=== PATIENT | male | born 1990 | race Two or more races ===

== ENCOUNTER 2023-12-11 20:05 | Emergency (ER) | payer BC, OTHER ==
[~2023-12-11] VITALS: Ht 165.1 cm; Wt 77.3 kg
[2023-12-11 20:51] LABS: Basophils # (auto) 0.1 10 ^3/uL (0-0.2); Basophils % (auto) 0.7 % (0.0-2.0); Eosinophils # (auto) 0.1 10 ^3/uL (0-0.8); Eosinophils % (auto) 1.5 % (0.0-7.0); Hematocrit 48.2 % (41.0-53.0); Hemoglobin 16.4 g/dL (13.5-17.5); Lymphocytes # (auto) 3.9 10 ^3/uL (0.4-5.4); Lymphocytes % (auto) 44.3 % (10.0-50.0); Mean Corpuscular Hemoglobin 30.9 pg (28.0-32.0); Mean Corpuscular Volume 90.9 fL (80.0-100.0); Monocytes # (auto) 0.9 10 ^3/uL (0-1.3); Neutrophils # (auto) 3.8 10 ^3/uL (1.6-8.6); Neutrophils % (auto) 43.5 % (37.0-80.0); Nucleated Red Blood Cells % 0.1 %; Red Cell Distribution Width 13.5 % (11.8-14.3); White Blood Cell 8.8 10^3/uL (4.4-10.8)
[2023-12-11 21:05] LABS: INR 1.02 (0.9-1.15); Partial Thromboplastin Time 27.6 SEC (24.5-34.5); Prothrombin Time 10.8 sec (9.3-11.8)
[2023-12-11 21:08] LABS: Alanine Aminotransferase 115 U/L (7-40); Alkaline Phosphatase 125 U/L (46-116); Anion Gap 12 (5-15); Aspartate Aminotransferase 50 U/L (13-40); BUN/Creatinine Ratio 9.4 (10.0-20.0); Bilirubin, Total 0.5 mg/dL (0.2-1.0); Blood Urea Nitrogen 8 mg/dL (9-23); Calcium 9.6 mg/dL (8.5-10.1); Carbon Dioxide 21 mmol/L (20-30); Chloride 105 mmol/L (98-107); Glucose 158 mg/dL (74-106); Potassium 3.6 mmol/L (3.5-5.1); Sodium 138 mmol/L (136-145)
[2023-12-11] MEDS ORDERED: CHL25C PO ×2 (21:15→21:18)
[2023-12-11] MEDS ORDERED: CHLO25CA10 PO (21:16)
[2023-12-11] MEDS: LORazepam 2MG/ML-1ML VIAL IM ONE (22:04)
[2023-12-11 22:05] VITALS: BP 147/86; PULSE 103; RESP 16; O2SAT 97
== END 2023-12-11 22:08 | disposition home or self-care (01) ==
LOC: ER 20:05
DX: F10.939 Alcohol use, unspecified with withdrawal, unspecified (principal); F14.90 Cocaine use, unspecified, uncomplicated; R07.89 Other chest pain; Y90.0 Blood alcohol level of less than 20 mg/100 ml
CPT/HCPCS: 36415; 71045; 80053; 83880; 84484; 85025; 85610; 85730; 93005; 96372; 99285; J2060